=== PATIENT | male | born 1980 | race Caucasian/White ===

== ENCOUNTER 2020-11-09 09:00 | Emergency (ER) | payer BC, SELFPAY ==
[2020-11-09 09:05] VITALS: BP 152/111; PULSE 98; RESP 20; TEMP 36.7; O2SAT 98
--- OUTSIDE RECORDS SUMMARY | 2020-11-09 09:23 | XMS_ITS ---
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 930018842 Problem Trigger thumb, M65.312 Active 78914 03 left thumb Problem Trigger thumb, M65.311 Active 41145 03 right thumb Problem Encounter for Z00.01 Active 614890 00 well adult exam with abnormal findings Problem Other headache G44.89 Active 74625 1009 syndrome Problem Anal fissure K60.2 Active 0419859 6 Problem Seasonal J30.2 Active 328836701 allergic rhinitis ALLERGIES No Known Allergies ENCOUNTERS Encounter Location Date Diagnosis [facility] [address] [place] [address] Jun, Contact w ith and Laboratory [place], [place] (suspected) expo sure to [phone] other viral comm unicable diseases Z20.828 [facility] [address] 06 Jun, 2020 Exposure to [place] VID-19 virus Office [place], [place] [id number] Z20.828 [facility] Feb, [place] [address] cause of in jury W57.XXXA [facility] [address] Aug, Encounter for well adult Office [place], [place] [phone] exam with abnormal findings Z00.01 [facility] [address] Aug, Encounter for critical [facility] hospital adult [place], [place] [phone] exam with abnormal findings Z00.01 ; Seasona l allergic rhinitis J30.2 ; Anal fissure K60.2 ; Trigger thumb, left thum b M65.312 and Trigger thum b, right thumb M65.311 [place] [address] Aug, Encounter for [place], [place] [id number] medical e xamination with abnormal finding s Z00.01 and Family histo ry of diabetes mellitu s Z83.3 [place] [address] Aug, Encounter for [facility] adult Office [place] [phone] medical e xamination with abnormal finding s Z00.01 [place] [address] Aug, Encounter for [place], [place] [address] medical e xamination with abnormal finding s Z00.01 ; Seasonal allergi c rhinitis J30.2 ; Lacerati on of left hand without for eign body, initial encounte r S61.412A ; Family history of diabetes mellitu s Z83.3 and Need for Tdap va ccination Z23 [place] [address] Jul, Trigger fing er of right [place], [place] [phone] thumb M65 .311 and Trigger finger of left t humb M65.312 [place] [address] Jul, Trigger fing er of left [place], [place] [id number] thumb M65 .312 and Trigger finger of right thumb M65.311 [place] [address] Jul, Trigger finger of right Office [place], [place] [phone] thumb M65 .311 and Trigger finger of left t humb M65.312 [place] [address] Jul, Encounter for [place], [place] [phone] exam with abnormal findings Z00.01 [place] [address] Jul, Encounter for [facility] adult [place], [place] [phone] medical e xamination with abnormal finding s Z00.01 [place] [address] Jul, Encounter for [place], [place] [address] medical e xamination with abnormal finding s Z00.01 ; Seasonal allergi c rhinitis J30.2 and Anal f issure K60.2 [facility] [address] Apr, Seasonal aller gic rhinitis Office [place], [place] [id number] J30.2 [facility] [address] Mar, Seasonal aller gic rhinitis Office [place], [place] [id number] J30.2 [facility] [place] [address] Feb, Sorethroat J02 .9 and Office [place], [place] [phone] Seasonal allergic rhinitis J30.2 [facility] [place] [address] Aug, Office [place], [place] [phone] [facility] [address] Jun, Right shoulder tendinitis [facility] [place], [place] M75.81 [address] [facility] [address] Jun, Right shou lder tendinitis [place], [place] M75.81 [address] [facility] [place] [address] May, Encounter for well adult Office [place], [place] [phone] exam with abnormal findings Z00.01 [place] [address] May, Knee tumor D 49.89 ; Xray [place], [place] [phone] Encounter for well adult exam with abnorm al findings Z00.01 ; Other h eadache syndrome G44.89 ; CSF leak G96.0 and Anal f issure K60.2 [place] [address] May, Annual physica l exam V70.0 Office [place], [place] [phone] and Encou nter for well adult exam with abnormal findings Z00.01 [place] [address] May, Encounter for well adult Office [place], [place] [phone] exam with abnormal findings Z00.01 ; Other h eadache syndrome G44.89 ; CSF leak G96.0 ; Anal fis sure K60.2 and Knee tumor D 49.89 [place] [address] May, Headache 784.0 and Annual Office [place], [place] [phone] physical exam V70.0 [place] [address] May, Annual physica l exam V70.0 [place], [place] [phone] ; Headach e 784.0 ; Anal fissure 565.0 ; CSF leak 349.89 ; Hematur ia 599.70 and Encounter fo r hearing evaluation V72.1 9 [facility] [address] 17 May, 2014 Well adult V70 .0 ; Anal Office [place] [id number] fissure 5 65.0 ; Postoperative CS F leak 997.09 and Encou nter for hearing examinat ion V72.19 [facility] [address] Feb, Office [place] [phone] [facility] [address] January, Headache 784.0 ; CSF leak Office [place], [place] [id number] 349.89 an d Administrative encounter V68.9 [facility] [address] January, Office [place] [phone] [facility] [address] January, [place] [phone] [facility] [address] January, [place] [phone] [facility] [address] Dec, Headache 784.0 Office [place] [id number] [facility] [address] Sep, Office [place] [id number] [facility] [address] Aug, Office [place] [phone] [facility] [address] Aug, Knee effusion, right 719.06 Office [place] [phone] and Cellu litis of knee, right 682.6 Simon Campos MD [address] Jun, [place] [address] Simon Campos MD [address] Jun, [place] [address] Simon Campos MD [address] Jun, [place] [address] [facility] [address] Feb, [place] [phone] [facility] [address] Dec, [place] [phone] [facility] [address] Nov, [place] [phone] [facility] [address] Sep, Office [place] [phone] [facility] [address] Sep, Office [place] [phone] [facility] [address] Sep, Office [place] [phone] [facility] [address] Aug, Office [place], [place] [phone] [facility] [address] Aug, Office [place] [phone] [facility] [address] Jul, Office [place] [phone] [facility] [address] Jul, Office [place] [phone] [facility] [address] Jun, Office [place] [phone] [facility] [address] Jun, Office [place] [phone] [facility] [place] [address] Dec, Office [place] [phone] IMMUNIZATIONS Vaccine Route Administration Date Status Tdap IM Intramuscular Aug 18, 2018 Administered Td FFS W/Counseling Unknown [id number] Admi nistered Flu, Split, 6-35 MO, IM Unknown [id number] A dministered SOCIAL HISTORY Qualifiers Date Former Smoker 1996 - 2010 REASON FOR REFERRAL FUNCTIONAL STATUS PLAN OF CARE Activity Details Pending Test Urinalysis Done In Office Pending Test Urinalysis Done In Office Pending Test Urine Dipstick, office Pending Test Urine Dipstick, office Pending Test Urine Dipstick, office Pending Test CMP/HEPATIC([facility]) Pending Test CBC WITH DIFF (AUTO) REFLEX TO MANUAL DIFF ([facility]) Pending Test PARTIAL THROMBOPLASTIN TIME (PTT)(APTT) (ALWAYS ORDER STAT) Pending Test C-REACTIVE PROTEIN (CRP) Pending Test PROTHROMBIN TIME Pending Test Tick Panel([facility]) Pending Test XRAY KNEE RIGHT 3V VITAL SIGNS MEDICATIONS Unknown Medications PROCEDURES Procedure Date Ordered Result Body Site COVID protocol: Gloves/masks/special services supervisor/time for Jun 19, 2020 cleaning. Excess cost was incurred during PHE. RESULTS Name Result Date Reference Range Influenza A, Rapid Antigen 2020-06-19 Detection([facility]) (rapid flu) INFLUENZA A Negative Negative Influenza B, Rapid Antigen 2020-06-19 Detection([facility]) (rapid flu) INFLUENZA B Negative Negative COVID-19 SARS-CoV-2 RNA 2020-06-19 QUALITATIVE REAL-TIME PCR SARS CoV 2 RNA DETECTED NOT DETECTED CMP([facility]) 2019-08-24 Na 142 136-145 K 4.1 3.5-5.3 Cl 100 98-107 CO2 29.00 22.00-32.00 CALCIUM 10.1 8.6-10.3 CALCIUM 10.1 8.6-10.3 BUN 15 6-26 Creatinine,Serum 1.10 0.70-1.20 eGFR 80 >60 BUN/CREAT 13.6 GLUCOSE 103 70-100 Total Protein 7.4 6.6-8.7 ALBUMIN 4.9 4.0-4.9 GLOBULIN 2.5 A/G RATIO 2.0 TOTAL BILIRUBIN 0.44 0.00-1.20 ALKALINE PHOS. 70 40-129 ALT (SGPT) 37 <41 AST (SGOT) 29 <40 Lipid Profile ([facility]) 2019-08-24 Triglycerides 143 <150 CHOLESTEROL 179 <200 HDL 69 >55 LDL (Calculation) 81 62-130 Chol/HdlRatio 2.6 0.0-4.9 CBC WITH DIFF (AUTO) REFLEX 2019-08-24 TO MANUAL DIFF ([facility]) WBC 5.4 4.6-10.9 RBC 4.94 4.10-5.70 HEMOGLOBIN 15.6 12.9-16.9 HEMATOCRIT 44.7 36.0-51.0 MCV 90.5 82.0-100.0 MCH 31.6 25.7-32.2 MCHC 34.9 32.3-36.5 PLATELET COUNT 235 150-400 MPV 10.4 RDW 12.7 11.6-14.4 LYMPHOCYTES 29.3 21.8-53.1 NEUTROPHILS 59.2 34.0-67.9 MONOCYTES 8.5 5.3-12.2 EOSINOPHILS 1.7 0.8-7.0 BASOPHILS 0.9 0.2-1.2 LYM# 1.6 NEUT# 3.2 MONO# 0.5 EOS# 0.1 BASO# 0.1 CMP([facility]) 2018-08-18 Na 141 136-145 K 4.5 3.5-5.3 Cl 101 98-107 CO2 30.00 22.00-32.00 CALCIUM 10.3 8.6-10.3 CALCIUM 10.3 8.6-10.3 BUN 16 6-26 Creatinine,Serum 0.91 0.70-1.20 eGFR 100 >60 BUN/CREAT 17.6 GLUCOSE 92 70-100 Total Protein 7.3 6.6-8.7 ALBUMIN 5.1 4.0-4.9 GLOBULIN 2.2 A/G RATIO 2.3 TOTAL BILIRUBIN 0.70 0.00-1.20 ALKALINE PHOS. 72 40-129 ALT (SGPT) 40 <41 AST (SGOT) 25 <40 Lipid Profile ([facility]) 2018-08-18 Triglycerides 154 <150 CHOLESTEROL 180 <200 HDL 67 >55 LDL (Calculation) 82 62-130 Chol/HdlRatio 2.7 0.0-4.9 Hemoglobin A1C([facility]) 2018-08-18 Hemoglobin A1C 5.3 <5.9 TSH([facility]) 2018-08-18 TSH 2.110 0.340-5.600 CBC WITH DIFF (AUTO) REFLEX 2018-08-18 TO MANUAL DIFF ([facility]) WBC 5.7 4.6-10.9 RBC 5.08 4.10-5.70 HEMOGLOBIN 15.6 12.9-16.9 HEMATOCRIT 45.2 36.0-51.0 MCV 89.0 82.0-100.0 MCH 30.7 25.7-32.2 MCHC 34.5 32.3-36.5 PLATELET COUNT 242 150-400 MPV 10.4 RDW 12.4 11.6-14.4 LYMPHOCYTES 28.4 21.8-53.1 NEUTROPHILS 60.5 34.0-67.9 MONOCYTES 8.9 5.3-12.2 EOSINOPHILS 1.0 0.8-7.0 BASOPHILS 0.9 0.2-1.2 LYM# 1.6 NEUT# 3.5 MONO# 0.5 EOS# 0.1 BASO# 0.1 CHLAMYDIA/N. GONORRHOEAE RNA, 2018-08-18 TMA CHLAMYDIA, AMP, URINE NEGATIVE NEGATIVE N. GONORRHOEAE, AMP, URINE NEGATIVE NEGAT KAREN Urinalysis Done In Office [place] N Nitrate n Urob 0.2 Protein N pH 8.0 Blood N SP.GR 1.005 Ketone N Bilirubin N Glucose N XRAY FINGER RIGHT 2018-08-12 Exam: Right thumb, 3 views. Findings: History of digit locks and no known injury is described. No suspicious focal bony abnormalities, an acute fracture, dislocation or suspicious soft tissue calcifications are seen. The joint spaces are unremarkable.. Consider additional evaluation, if needed or if symptoms persist. IMPRESSION: No significant bony abnormalities are seen. Electronically Signed By: Arlet Zimmerman M.D. Signature Date: 08/12/2018 10:39 AM XRAY FINGER LEFT 2018-08-12 Exam: Left thumb, 3 views. Findings: History of digit locks and no known injury is described. A study of the right thumb is reported separately. No suspicious focal bony abnormalities, arthritic changes, an acute fracture, dislocation or suspicious soft tissue calcifications are seen. . Consider additional evaluation, if needed or if symptoms persist. IMPRESSION: No significant bony abnormalities are seen. Electronically Signed By: Arlet Zimmerman M.D. Signature Date: 08/12/2018 10:41 AM Exam: Left thumb, 3 views. Findings: History of digit locks and no known injury is described. A study of the right thumb is reported separately. No suspicious focal bony abnormalities, arthritic changes, an acute fracture, dislocation or suspicious soft tissue calcifications are seen. . Consider additional evaluation, if needed or if symptoms persist. IMPRESSION: No significant bony abnormalities are seen. Electronically Signed By: Arlet Zimmerman M.D. Signature Date: 08/12/2018 10:41 AM CMP([facility]) 2017-08-12 Na 141 136-145 K 4.4 3.5-5.3 Cl 102 98-107 CO2 24.00 22.00-29.00 CALCIUM 9.9 8.6-10.3 CALCIUM 9.9 8.6-10.3 BUN 14 6-26 Creatinine,Serum 0.93 0.70-1.20 eGFR 98 >60 BUN/CREAT 15.1 GLUCOSE 91 74-106 Total Protein 7.4 6.6-8.7 ALBUMIN 4.9 4.0-4.9 GLOBULIN 2.5 A/G RATIO 2.0 TOTAL BILIRUBIN 0.52 0.00-1.20 ALKALINE PHOS. 79 40-129 ALT (SGPT) 24 <41 AST (SGOT) 20 <40 Cholesterol([facility]) 2017-08-12 CHOLESTEROL 196 <200 CBC WITH DIFF (AUTO) REFLEX 2017-08-12 TO MANUAL DIFF ([facility]) WBC 5.8 4.6-10.9 RBC 5.12 4.10-5.70 HEMOGLOBIN 15.7 12.9-16.9 HEMATOCRIT 45.8 36.0-51.0 MCV 89.5 82.0-100.0 MCH 30.7 25.7-32.2 MCHC 34.3 32.3-36.5 PLATELET COUNT 246 150-400 MPV 10.2 RDW 12.3 11.6-14.4 LYMPHOCYTES 26.3 21.8-53.1 NEUTROPHILS 63.4 34.0-67.9 MONOCYTES 7.8 5.3-12.2 EOSINOPHILS 1.7 0.8-7.0 BASOPHILS 0.5 0.2-1.2 LYM# 1.5 NEUT# 3.6 MONO# 0.5 EOS# 0.1 BASO# 0.0 CHLAMYDIA/N. GONORRHOEAE RNA, 2017-08-12 TMA CHLAMYDIA, AMP, URINE NEGATIVE NEGATIVE N. GONORRHOEAE, AMP, URINE NEGATIVE NEGAT KAREN XRAY SHOULDER RIGHT 2016-06-19 Exam: Right shoulder 3 views Findings: No significant abnormality is seen. Impression: Negative study. Electronically Signed By: Samson Kowalski M.D. Signature Date: 06/26/2016 8:54 AM CMP([facility]) 2016-06-04 Na 143.00 136.00-145.00 K 4.36 3.50-5.10 Cl 103.00 98.00-107.00 CO2 26.00 22.00-29.00 BUN 20.00 6.00-20.00 Creatinine,Serum 0.94 0.70-1.20 eGFR 97 >60 BUN/CREAT 21.3 GLUCOSE 89.00 74.00-106.00 Total Protein 7.50 6.60-8.70 ALBUMIN 4.80 3.97-4.94 GLOBULIN 2.7 A/G RATIO 1.8 TOTAL BILIRUBIN 0.30 0.00-1.20 ALKALINE PHOS. 90.00 40.00-129.00 ALT (SGPT) 26.00 <41.00 AST (SGOT) 25.00 <40.00 CALCIUM 10.00 8.60-10.30 CALCIUM 10.00 8.60-10.30 Cholesterol([facility]) 2016-06-04 CHOLESTEROL 195.00 <200.00 CBC WITH DIFF (AUTO) REFLEX 2016-06-04 TO MANUAL DIFF ([facility]) WBC 5.1 4.2-9.1 RBC 4.71 4.63-6.08 HEMOGLOBIN 14.8 13.7-17.5 HEMATOCRIT 42.8 40.1-51.0 MCV 90.9 82.0-100.0 MCH 31.4 25.7-32.2 MCHC 34.6 32.3-36.5 PLATELET COUNT 214 163-337 MPV 10.8 RDW 12.4 11.6-14.4 LYMPHOCYTES 30.6 21.8-53.1 NEUTROPHILS 56.3 34.0-67.9 MONOCYTES 8.9 5.3-12.2 EOSINOPHILS 3.0 0.8-7.0 BASOPHILS 1.0 0.2-1.2 LYM# 1.6 NEUT# 2.9 MONO# 0.5 EOS# 0.2 BASO# 0.1 XRAY KNEE RIGHT 2016-06-04 Right knee x-ray 2 views Clinical data: Palpable abnormality By plain film no soft tissue mass or calcification is seen. Upright 2 view exam shows no sign of arthritis, effusion or other significant plain film abnormality. Electronically Signed By: Jose D Perez M.D Signature Date: 06/10/2016 11:16 AM Urinalysis Microscopic 2016-06-04 w/Reflex to Culture ([facility]) EPITHELIAL CELLS Trace None CHLAMYDIA/N. GONORRHOEAE RNA, 2016-06-04 TMA CHLAMYDIA TRACHOMATIS RNA, NOT DETECTED NOT D ETECTED TMA NEISSERIA GONORRHOEAE RNA, NOT DETECTED NOT D ETECTED TMA COMMENT SEE NOTE CMP/HEPATIC([facility]) 2015-06-03 NA 138 136-145 K 4.00 3.50-5.30 CL 96 98-107 CO2 29 22-32 CALCIUM 9.6 8.4-10.2 BUN 17 7-26 CREATININE 0.86 0.60-1.30 eGFR 109 >60 BUN/CREAT 19.8 GLUCOSE 84 70-105 TOTAL PROTEIN 7.6 6.5-8.3 ALBUMIN 4.7 3.5-5.0 GLOBULIN 2.9 A/G RATIO 1.6 TOTAL BILIRUBIN 0.8 0.2-1.2 DIRECT BILIRUBIN 0.1 <0.3 ALKALINE PHOS 68 32-92 ALT (SGPT) 24 10-40 AST (SGOT) 28 10-42 Cholesterol([facility]) 2015-06-03 CHOLESTEROL 199 100-200 CBC WITH DIFF (AUTO) REFLEX 2015-06-03 TO MANUAL DIFF ([facility]) NEUTROPHILS 51.0 34.0-67.9 CHLAMYDIA/N. GONORRHOEAE RNA, 2015-06-03 TMA CHLAMYDIA TRACHOMATIS RNA, NOT DETECTED NOT D ETECTED TMA NEISSERIA GONORRHOEAE RNA, NOT DETECTED NOT D ETECTED TMA COMMENT SEE NOTE BARTONELLA ANTIBODY PANEL, 2013-09-07 IGG EULALIO HENSELAE IGG <1:128 <1:128 EULALIO HENSELAE IGM <1:20 <1:20 EULALIO KEENAN IGG <1:128 <1:128 EULALIO KEENAN IGM <1:20 <1:20 XRAY KNEE RIGHT 1 OR 2V 2013-09-07 XRAY KNEE RIGHT 1 OR 2V Exam: Right knee 2 views upright Findings: There is prepatellar soft tissue swelling. No fracture or other bone/joint abnormality is seen. URIC ACID([facility]) 2013-09-07 URIC ACID 6.3 4.4-7.6 ESR/SED RATE ([facility]) 2013-09-07 ESR 1 0-15 CBC WITH DIFF (AUTO) REFLEX 2013-09-07 TO MANUAL DIFF ([facility]) RBC 4.89 4.20-5.80 HEMOGLOBIN 15.6 13.1-17.1 HEMATOCRIT 46.1 40.0-51.0 MCV 94.3 80.0-100.0 MCH 31.9 27.0-34.0 MCHC 33.8 31.0-36.0 RDW 12.9 11.5-14.5 PLATELET COUNT 224 140-400 MONOCYTES 6.7 0.0-14.0 EOSINOPHILS 0.9 0.0-5.0 BASOPHILS 0.8 0.0-3.0 REASON FOR VISIT physical, Patient here for Covid Testing, exposure to Covid --nd, Tick Bite, This encounter is being provided at the patient's request and with their consent, using audio-visual telemedicine technology of [email or web address]. Documentation and billing utilize [employer]., physical, BCBSRI 2019 Santos dalal: Pt. needs Tobacco Screening , physical, physical, cut left hand, XRFINR^XRAY FINGER RIGHT, XRFINL^XRAY FINGER LEFT, Thumb pain and stiffness, physical, Refill, Refill, sore throat, letter needed, Right shoulder tendinitis , Right shoulder pain x 1 month. No injury. No x-rays, physical, physical, physical, no show, 2 wk f/u, 2 wk f/u, review disablity PW, phone call, headaches for x days , knee pain, not feeling well Insurance Providers [facility] Member Patient Patient Patient Patient Patient Subscriber Subscriber Subscriber Group Insurance Plan Plan Plan Plan ID Relationship Address Phone Name Date of ID Name Date of No Type Insurance Insurance Insurance Coverage to Subscriber Address Phone Name Dates United [phone] [place] [id number] [phone] [id number] [facility] [phone] [facility] Commercial [id number] Commercial Blue [phone] Blue self [place] [id number] Shield of Exchange 12 Shield of [place] [address] [place] [address] Blue [phone] Blue self [place] [id number] Shield of Exchange 12 [facility] [place] [facility] [id number] MEDICAL (GENERAL) HISTORY Type Description Date Medical History Proctalgia Medical History Postoperative CSF leak Medical History Anal fissure Surgical History S/P Sigmoidoscopy Surgical History CSF leak repair : [facility] 2013 Hospitalization History CSF leak 2013
--- OUTSIDE RECORDS SUMMARY | 2020-11-09 09:23 | XMS_ITS ---
:1980 Author Care Team Providers Name Role Phone ANTHONY MARIE Physician Organ Pipe Finisher [phone] IMAN GLEASON MD Orthopedic Surgeon [phone] Allergies Code Code System Name Reaction Severity Status Onset NKDA ? Medications No Medications Reported Problems No Known Problems Procedures Date Name Performed by ? 09/15/2019 XR, Finger(s), 2 or More View [place] [address] [facility] [address] [place] [address] (Work Place) 04/11/2020 XR, Elbow, 3 or More View [place] [address] [facility] [address] [place] [address] (Work Place) Notes: intercanial hyper tension spinal surgery 2014 by in [place] Results Lab Results None recorded. Past Encounters 04/11/2020 Pain in Elbow; Acquired Trigger Finger; Lateral Epicondylitis of Right Humerus Iman Gleason MD: [address], [place] [address], Ph. 09/15/2019 Pain in Finger; Acquired Trigger Finger FRANK Cardoza: [address], [place] [address], Ph. Social History Tobacco Smoking Status Never Smoker Vaccine List None recorded. Plan of Care Reminders Provider Appointments None ? ? recorded. Lab None ? ? recorded. Referral None ? ? recorded. Procedures None ? ? recorded. Surgeries None ? ? recorded. Imaging None ? ? recorded. Vitals 04/11/2020 03:00PM Established Patient 20 Height Weight BMI 71 in 199 lbs 16 oz 27.9 kg/m2 09/15/2019 01:15PM New Patient 15 Height Weight BMI 71 in 198 lbs 27.6 kg/m2
--- NOTE | 2020-11-09 09:30 | DI.RAD_ITS ---
EXAM: XR PELVIS W OBLIQUES 3V CLINICAL HISTORY: R groin puncture wound. TECHNIQUE: 2D digital imaging was performed. COMPARISON: No exams were available for comparison FINDINGS: BONES: No acute fracture is present. No bony destructive lesion is seen. JOINTS: No dislocation present. No joint space narrowing is present. SOFT TISSUE: Normal. IMPRESSION: Unremarkable radiographs of the pelvis. DATA REPOSITORY: RADIATION DOSE DELIVERED:
--- NOTE | 2020-11-09 10:38 | DI.VRAD_ITS ---
PROCEDURE INFORMATION: Exam: XR Pelvis Exam date and time: 11/09/2020 10:31 AM Age: 40 years old Clinical indication: Injury or trauma; Other: Puncture wound; Not specified; Right; Groin TECHNIQUE: Imaging protocol: XR pelvis. Views: 3 or more views. COMPARISON: No relevant prior studies available. FINDINGS: Bones/joints: Unremarkable. No acute fracture. Soft tissues: Unremarkable. IMPRESSION: No acute findings. Dictated and Authenticated by: Maris Mccallum MD. Ordering:BARTOLOME Parnell MD
[2020-11-09 11:05] VITALS: BP 137/93; PULSE 74; RESP 16; TEMP 36.8; O2SAT 94
--- NOTE | 2020-11-09 11:30 | W.ED.GENAD ---
Discharge Plan Disposition Patient Disposition: HOME Condition: Stable Discharge Details Clinical Impression: Laceration of groin Primary Care Provider: Portia,Local ED Provider: Parmjit Rodrigues Home Meds and New Rx's Prescriptions: New cephalexin 500 mg capsule 500 mg PO QID 10 Days Qty: 40 RF: 0 Discharge Instructions Instructions: Laceration (ED) Additional Instructions: Laceration was loosely approximated. Keep the area clean and dry, change antibiotic dressing daily. [id number] Tylenol and/or Motrin as directed for discomfort. X-ray was unremarkable for any obvious foreign body. As we discussed this is an area of high tension and I would recommend avoiding activity that will increase your chance of tearing the sutures out. Given the location, I would recommend following up at home in [place] in approximately 2 weeks for suture removal, although return here or any local ER for new or worsening symptoms. Keflex as directed. Discharge Data Discharge Date/Time-TO BE ENTERED AT DEPARTURE: 11/09/20 12:10 Medical Decision Making This is a 40-year-old gentleman presenting for a right groin laceration that he sustained yesterday between 3 and 3:30 PM while skiing. He was at the end of his run, fell forward extremely low speed and landed on a freshly cut twig-stick that was under the snow. He does not believe there is any obvious foreign body. Denies numbness, tingling, weakness, bleeding. He finished skiing at the end of the day. He denies any fever or any other injuries. Patient is unsure regarding his tetanus. Will update tetanus, obtain x-ray for potential foreign body although we did discuss that x-ray cannot completely rule out foreign body. We discussed that he is outside of the typical window for closure however given the location, and the size of wound, at this may take a considerable time to heal from secondary measures. We discussed her options. Plan is to initiate antibiotic therapy and will loosely approximate the laceration. Patient is agreeable to this plan and has no additional questions or concerns. Tetanus updated. First dose of Keflex given here in the ER. X-ray of the pelvis read by radiology as unremarkable. The laceration was loosely approximated using 2 sutures. Patient tolerated well. Patient remains neuro, vascular, tendon intact. Patient does understand the risk of retained foreign body and/or elevated risk of infection and the importance of follow-up at home when he returns to [place]. Otherwise he will return to the ER for new or worsening symptoms. We discussed sutures being removed in approximately 10 days given the location. HPI General Mode of arrival: ambulatory. Date/Time Provider Initiated Documentation: 11/09/20 09:01. Limitations to Documentation: no limitations. Information obtained by: patient. HPI Narrative: This is a 40-year-old male, no significant past medical history, presenting to the ER for evaluation of a right groin laceration that he sustained yesterday. He states that yesterday he was skiing and was at the [place]. States that he fell forward into a what appeared to be fresh cut half inch twig or branch. It punctured through his clothing into his right upper leg. Patient states he felt mild pain and continue to ski. This occurred around 3-330 yesterday afternoon. The twig appeared young and fresh, he has very little concern of a foreign body. He eventually cleaned his wound in the shower. He denies any other injury. Denies numbness, tingling, weakness. No active bleeding. Believes his tetanus status is up-to-date but unsure of the exact date. He would estimate that the aspect of the twig that went to his leg was 1-2 inch. Related Data Home Medications Medication Instructions Recorded Confirmed cephalexin 500 mg PO QID 10 Days #40 cap 11/09/20 Previous Rx's Medication Instructions Recorded cephalexin 500 mg PO QID 10 Days #40 cap 11/09/20 Allergies Allergy/AdvReac Type Severity Reaction Status Date / Time No Known Allergies Allergy Unverified 11/09/20 09:08 General Stated Complaint: Laceration DONNIE: 4 Review of Systems Constitutional Constitutional: Denies fever(s) and Denies weakness Genitourinary Genitourinary: Denies hematuria, Denies dysuria and Denies testicular pain Musculoskeletal Musculoskeletal: Denies arthralgias, Denies numbness and Denies tingling Integumentary/Breasts Skin/Breast: Denies erythema Neurologic Neurologic: Denies numbness, Denies tingling and Denies weakness [facility] Surgical History 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 , leaking spinal fluid 7 years ago Social History Smoking/Tobacco Use Status: Never Smoking risk assessment performed?: Yes Alcohol Intake: current Alcohol Intake frequency: a few times a month Drug use: Never Substance use type: does not use Do you feel safe at home: Yes Do you feel safe in your relationship?: Yes Exam Const General: cooperative, healthy appearing, comfortable and no acute distress Orientation: alert and awake [facility] Head: normal to inspection, normocephalic and atraumatic Eyes General: appearance normal, both eyes and all related structures Conjunctivae: conjunctivae normal Sclera: sclerae normal Neck Neck: normal visual inspection, full ROM, trachea midline and supple Resp Effort & Inspection: normal respiratory effort and able to speak in complete sentences Cardio Rate: regular rate Rhythm: regular rhythm Male General Exam: Yes normal external exam Male genitals images: 1. There is a 2.5 cm oval laceration-puncture wound. There is localized tenderness. Localized ecchymosis. Without warmth, erythema, drainage, active bleeding. Neuro, vascular, tendon intact. No obvious foreign body. Skin General skin exam: no rashes or lesions noted Neuro General: patient alert, patient awake, moves all extremities and no focal motor deficits Cognition: normal cognition Speech: speech normal Motor: muscle tone normal throughout Sensory Exam: no sensory deficits noted Extrem General: full ROM and capillary refill normal Right lower extremity: full ROM and normal capillary refill Other: Laceration of the right groin, upper leg as described previously. There is no bony point tenderness, deformity, discomfort with internal or external rotation. Patient has full range of motion. Neuro, vascular, tendon intact. Psych Appearance: grossly normal Mental Status: mental status grossly normal Course Vital Signs Vital signs: Vital Signs Temperature 36.7 C 11/09/20 09:05 Pulse 98 H 11/09/20 09:05 Respiratory Rate 20 11/09/20 09:05 Blood Pressure 152/111 H 11/09/20 09:05 Pulse Oximetry 98 11/09/20 09:05 Temperature 36.8 C 11/09/20 11:05 Temperature Source Skin 11/09/20 11:05 Pulse 74 11/09/20 11:05 Respiratory Rate 16 11/09/20 11:05 Respiratory Effort Non-Labored 11/09/20 09:09 Blood Pressure 137/93 H 11/09/20 11:05 Blood Pressure Position Sitting 11/09/20 09:05 Pulse Oximetry 94 11/09/20 11:05 Oxygen Delivery Method Room Air 11/09/20 11:05 Oxygen Flow Rate 0 11/09/20 11:05 Pain Level 2 11/09/20 11:05 Comment 11/09/20 11:05 Procedures Laceration Laceration 1: Site: other (Groin) Side (If applicable): right Size (cm): 2.5 Description: clean and other (Oval-puncture wound) Depth: simple, single layer Local Anesthetic: Lidocaine 1% and with Epi Amount of anesthesia used (mL): 5 Pre-repair: wound explored, irrigated extensively and deep structures intact Skin layer closed with: nylon Size (cm): 4-0 Number of sutures: 2 Technique: simple, interrupted and other (Only loosely approximated.) Other Description: Procedure performed by FRANK Cardona under my direct supervision.
[2020-11-09] MEDS: Cephalexin 500 MG CAP PO (11:46)
== END 2020-11-09 12:10 | disposition home or self-care (01) ==
PROVIDERS: Emergency Provider Physician Assistant
DX: S31.113A Laceration without foreign body of abdominal wall, right lower quadrant without penetration into peritoneal cavity, initial encounter (principal); W26.8XXA Contact with other sharp object(s), not elsewhere classified, initial encounter; Y93.23 Activity, snow (alpine) (downhill) skiing, snowboarding, sledding, tobogganing and snow tubing
CPT/HCPCS: 12001; 90471; 72190